=== PATIENT | male | born 1945 | race Caucasian/White ===

== ENCOUNTER → 2020-05-17 | Outpatient (CLI) | payer OTHER ==
[~2020-05-17] MED LIST: DIOVAN320 MG PO; HYDROCHLOROTHIA25 M2 PO; ZOCOR20 MG PO
== END ==
LOC: SJCVC 14:55 → SJCVCIMAG 14:55
PROVIDERS: ATTEND Internal Medicine
DX: I08.0 Rheumatic disorders of both mitral and aortic valves (principal); I11.9 Hypertensive heart disease without heart failure; R94.31 Abnormal electrocardiogram [ECG] [EKG]; I25.5 Ischemic cardiomyopathy; E78.5 Hyperlipidemia, unspecified; M16.12 Unilateral primary osteoarthritis, left hip; Z79.899 Other long term (current) drug therapy

== ENCOUNTER → 2020-07-13 | Outpatient (CLI) | payer OTHER | LOC: SJCVC 10:40 | PROVIDERS: ATTEND Internal Medicine | DX: R94.31 Abnormal electrocardiogram [ECG] [EKG] (principal); I11.9 Hypertensive heart disease without heart failure; I25.5 Ischemic cardiomyopathy; I25.118 Atherosclerotic heart disease of native coronary artery with other forms of angina pectoris; I63.422 Cerebral infarction due to embolism of left anterior cerebral artery; E78.5 Hyperlipidemia, unspecified; M16.12 Unilateral primary osteoarthritis, left hip; Z79.899 Other long term (current) drug therapy ==

== ENCOUNTER → 2020-07-13 | Outpatient (CLI) | payer OTHER | LOC: LAB 10:34 | PROVIDERS: ATTEND Internal Medicine | DX: Z01.812 Encounter for preprocedural laboratory examination (principal); Z20.822 Contact with and (suspected) exposure to COVID-19 ==

== ENCOUNTER → 2020-08-10 | Outpatient (CLI) | payer OTHER | LOC: SJCVCIMAG 07:49 | PROVIDERS: ATTEND Internal Medicine | DX: R94.31 Abnormal electrocardiogram [ECG] [EKG] (principal); I65.23 Occlusion and stenosis of bilateral carotid arteries; I25.5 Ischemic cardiomyopathy; I25.118 Atherosclerotic heart disease of native coronary artery with other forms of angina pectoris; I63.422 Cerebral infarction due to embolism of left anterior cerebral artery; E78.5 Hyperlipidemia, unspecified; I10 Essential (primary) hypertension; M16.12 Unilateral primary osteoarthritis, left hip; Z79.899 Other long term (current) drug therapy ==

== ENCOUNTER → 2020-08-17 | Outpatient (CLI) | payer OTHER | LOC: LAB 10:22 | PROVIDERS: ATTEND Internal Medicine | DX: Z01.812 Encounter for preprocedural laboratory examination (principal); J02.9 Acute pharyngitis, unspecified; Z20.822 Contact with and (suspected) exposure to COVID-19 ==

== ENCOUNTER → 2020-08-21 | Outpatient (CLI) | payer OTHER ==
[~2020-08-21] VITALS: Ht 195.6 cm; Wt 131.1 kg
[~2020-08-21] MED LIST changes: +ASA81BEC PO; +ATENOLOL 25 MG25 M1 PO; +AVAPRO300 MG PO; +CHLORTHALIDONE25 MG PO; +CLOPIDOGREL75 MG PO; +LIPITOR 20 MG T20 M1 PO; +PROTONIX40 M2 PO
--- NOTE | ~2020-08-21 | CATHLAB ---
Former[facility] [address] [address] INVASIVE PROCEDURE REPORT Name: NANCY SMITH Room #: REG KRISTEN Kirsten.#: [id number] Admission: 08/21/20 Attend Phys: Santiago Colunga MD, Discharge: Date of : 41 Report #: [id number] THIS REPORT FOR: cc: MARCO A ASHRAF MD, OSSAMA MD Lundgren,Santiago Salas MD [facility] ~ DATE OF SERVICE: 08/21/2020 PROCEDURE: Implantable Medtronic LINQ loop recorder, INDICATIONS: Stroke. DESCRIPTION OF PROCEDURE: The potential benefits and risks of the procedure were discussed at length with the patient who understood. Full written and informed consent was obtained. The patient was brought into the catheterization holding area where his left anterior chest was prepped and draped in a sterile fashion. A 1% Xylocaine was used as local anesthetic. A 1 cm stab wound was made over the left fourth medial intercostal space. A Medtronic Reveal LINQ loop recorder, serial #[id number] was placed. A single bioabsorbable stitch was placed and the wound was covered with a sterile Band-Aid. Thresholds were excellent. He tolerated the procedure well. SUMMARY: Successful Medtronic LINQ implantable loop recorder for history of stroke. By: 0812 0827 Santiago Colunga MD, FACC /nt
[2020-08-21 08:06] VITALS: BP 179/96
--- NOTE | 2020-08-21 17:24 | CATHLAB ---
[facility] [place] [address] INVASIVE PROCEDURE REPORT Name: NANCY SMITH Room #: REG KRISTEN Heck.Jany.#: [id number] Admission: 08/21/20 Attend Phys: Santaigo Colunga MD, Discharge: Date of : 41 Report #: [id number] THIS REPORT FOR: cc: MARCO A ASHRAF MD, OSSAMA MD Lundgren, Craig H. MD [facility] ~ APPROVED REPORT Study performed: 08/21/2020 07:41:58 Patient Details The patient is a 75 year-old male Event Personnel Santiago Colunga Card Dealer, Sal Bolanos RN RN, Aleta Skinner RT(R)() Monitor, Cuauhtemoc Reynolds RTR Scrub Procedures Performed Art Access - R femoral artery* Left Heart Cath w/or w/o Coronaries [id number] [facility] Hemostasis w/ Mynx 14164 Initial Mod Sed Same Phys/QHP Gr5y 121189 51864 Mod Sed Same Phys/QHP Ea 884104 Procedure Narrative The patient was brought electively to the Cardiac Catheterization Laboratory and was prepped and draped in a sterile manner. The Right Groin^ was infiltrated with 2% Lidocaine subcutaneous anesthesia. A PINNACLE 6FR Sheath #[id number] sheath was inserted into the RFA 6F^. Coronary angiography was performed using coronary diagnostic catheters. The right coronary system was accessed and visualized with a JR4 catheter. The left coronary system was accessed and visualized with a JL4 catheter. The left ventricle was accessed and visualized with a PIGTAIL catheter. The patient tolerated the procedure well and there were no complications associated with the procedure. There was no hematoma. Intraoperative Conscious Sedation Fentanyl 50 mcg Versed 1 mg Fluoro Time: 2.60 minutes Dose: DAP 77340.90 cGycm2 Contrast Type and Amount: Omnipaque 95 ml Coronary Angiography The patient's coronary anatomy is co- dominant. [address] [address] [place] [address] INVASIVE PROCEDURE REPORT Name: NANCY SMITH Room #: REG Annel#: [id number] Admission: 08/21/20 Attend Phys: Santiago Colunga, Discharge: Date of : 41 Report #: [id number] Diagnostic Cath Left Main 40% distal left main stenosis LAD Occluded LAD just after the first septal perforating branch. Left to left collateralization to the distal two thirds of the LAD The LAD appeared to be a relatively large calibered vessel. Diagonal 1 Large diagonal branch with variable 75% sequential stenoses in the proximal and mid portions Circumflex Mild diffuse plaquing throughout the circumflex OM1 75 to 80% ostial OM1 stenosis OM2 Mild plaquing in the second marginal branch L PDA Mild posterior descending artery plaquing Right Coronary Relatively small, codominant right coronary with 85% mid vessel stenosis 95% distal right coronary stenosis with occlusion of the distal right coronary. Faint left to distal right collateralization Left Ventriculography The left ventricle is normal in size with abnormal contractility. The left ventricular ejection fraction is estimated to be 50-55%. Left ventricular wall motion abnormalities are present. There is no mitral insufficiency. Hypokinesis of the apex and inferoapex Hemodynamics The aortic pressure is 191/86 mmHg with a mean of 128 mmHg. The left ventricular pressure is 198/16 mmHg with a mean of mmHg. The left ventricular end diastolic pressure is 30 mmHg. Conclusion 1. Mild left ventricular dysfunction with apical and inferoapical hypokinesis. Ejection fraction 50-55% 2. 40% distal left main stenosis 3. Severe multivessel coronary disease. Codominant circulation. <ELECTRONICALLY SIGNED> By: Santiago Colunga MD, FACC 08/21/20 1724 [id number] 23 Santiago Colunga MD, FACC /INF
== END | disposition home or self-care (01) ==
LOC: CATH 06:24
PROVIDERS: ATTEND Internal Medicine
DX: I25.10 Atherosclerotic heart disease of native coronary artery without angina pectoris (principal); I63.9 Cerebral infarction, unspecified; I10 Essential (primary) hypertension; E78.5 Hyperlipidemia, unspecified; M19.90 Unspecified osteoarthritis, unspecified site; Z98.890 Other specified postprocedural states; Z79.899 Other long term (current) drug therapy; Z79.82 Long term (current) use of aspirin